=== PATIENT | female | born 1955 | race Two or more races ===

== ENCOUNTER 2018-11-24 09:37 | Emergency (ER) | payer MEDICAID, MEDICARE ==
[~2018-11-24] VITALS: Ht 157.5 cm; Wt 72.0 kg
[~2018-11-24 09:37] MED LIST: ENAL10TA PO; SITA1TAB8 PO
[2018-11-24 09:51] VITALS: BP 164/73
== END 2018-11-24 11:55 | disposition left against medical advice (07) ==
LOC: ER 09:37
DX: Z53.21 Procedure and treatment not carried out due to patient leaving prior to being seen by health care provider (principal)

== ENCOUNTER 2020-05-20 18:20 | Emergency (ER) | payer MEDICARE ==
[~2020-05-20] VITALS: Ht 157.5 cm; Wt 70.0 kg
[2020-05-20] MEDS ORDERED: LIDOCAINE HCL 1% 20ML VIAL (Pyxis) INJ INFIL ONE (19:15)
[2020-05-20] MEDS ORDERED: CEFTRIAXONE SODIUM 1 G/VIAL IM ONE (19:15)
[2020-05-20] MEDS ORDERED: ACETAMINOPHEN 325MG TABLET PO ONE (19:15)
[2020-05-20 19:43] LABS: BASOPHILS % 0.6 % (0.0-2.0); EOSINOPHILS % 1.6 % (0.0-5.0); HEMATOCRIT. 39.2 % (36.0-48.0); HEMOGLOBIN. 12.8 g/dL (12.0-16.0); LYMPHOCYTES % 13.3 % (20.0-50.0); MEAN CORPUSCULAR VOLUME 82.8 fL (81.0-99.0); MEAN PLATELET VOLUME 9.8 fl (7.4-10.4); MONOCYTES % 7.5 % (2.0-8.0); PLATELET 148 x1000/uL (130-400); RED BLOOD CELL COUNT 4.74 mill/uL (4.2-5.4); RED CELL DISTRIBUTION WIDTH 14.4 % (11.6-14.6)
[2020-05-20 19:49] LABS: CHLORIDE 101 mEq/L (98-107)
[2020-05-20] MEDS ORDERED: INSULIN REGULAR (HUMULIN R) 300UNITS/3ML SUBCUT ONE (20:15)
[2020-05-20 21:39] VITALS: BP 148/88
== END 2020-05-20 21:40 | disposition home or self-care (01) ==
LOC: ER 18:20
DX: L03.115 Cellulitis of right lower limb (principal); L03.031 Cellulitis of right toe; E11.9 Type 2 diabetes mellitus without complications; I10 Essential (primary) hypertension; Z88.2 Allergy status to sulfonamides; Z88.8 Allergy status to other drugs, medicaments and biological substances
CPT/HCPCS: 36415; 73630; 80053; 83605; 84550; 85025; 96372; 99284; J0696; J1815; J3490